=== PATIENT | female | born 1955 | race Two or more races ===

== ENCOUNTER → 2019-01-07 | Outpatient (CLI) | payer OTHER | END | disposition home or self-care (01) | LOC: TOM 09:00 | DX: R19.5 Other fecal abnormalities (principal); K56.50 Intestinal adhesions [bands], unspecified as to partial versus complete obstruction ==

== ENCOUNTER 2024-01-25 08:39 | Outpatient (CLI) | payer OTHER | END 2024-01-25 08:44 | disposition home or self-care (01) | LOC: TOM 08:39 | PROVIDERS: ATTEND Internal Medicine | DX: K56.50 Intestinal adhesions [bands], unspecified as to partial versus complete obstruction (principal); Z12.11 Encounter for screening for malignant neoplasm of colon ==